=== PATIENT | female | born 1985 | race African-American/Black ===

== ENCOUNTER 2023-03-14 07:22 | Emergency (ER) | payer SELFPAY | END 2023-03-14 09:05 | disposition home or self-care (01) | LOC: NAV ERS 07:22 | DX: B34.9 Viral infection, unspecified (principal); Z20.822 Contact with and (suspected) exposure to COVID-19; F17.210 Nicotine dependence, cigarettes, uncomplicated | CPT/HCPCS: 87081; 87430; 87635; 87804; 99283 ==

== ENCOUNTER 2025-04-15 19:25 | Emergency (ER) | payer BC, SELFPAY ==
[2025-04-15 19:53] LABS: #Basophils 0.1 thou/uL (0.0-0.2); #Eosinophils 0.1 thou/uL (0.0-0.7); #Lymphocytes 3.1 thou/uL (1.20-3.40); #Monocytes 0.8 thou/uL (0.11-0.59); #Neutrophils 6.9 thou/uL (1.40-6.50); %Basophils 1.3 % (0.0-1.0); %Eosinophils 0.6 % (0.0-10.0); %Lymphocytes 28.0 % (21.0-51.0); %Monocytes 7.0 % (0.0-10.0); %Neutrophils 63.1 % (42.0-75.0); Hematocrit 40.4 % (36.0-47.0); Hemoglobin 13.4 g/dL (12.0-16.0); Mean Corpuscular Hemoglobin 28.0 pg (27.0-31.0); Mean Corpuscular Volume 84.5 fl (78.0-98.0); Platelet Count 359 10x3/uL (130-400); Red Blood Cell (RBC) Count 4.78 mill/uL (4.20-5.40); White Blood Cell (WBC) Count 10.9 10x3/uL (4.8-10.8)
[2025-04-15] MEDS ORDERED: Aspirin Chewable 81 MG TAB ONE (20:08)
[2025-04-15] MEDS ORDERED: Nitroglycerin 0.4 MG TAB 1 EACH ONE (20:09)
[2025-04-15 20:19] LABS: Troponin I Less than 0.010 ng/mL (< 0.028)
[2025-04-15 20:20] LABS: ALT (SGPT) 7 U/L (Less than 34); AST (SGOT) 20 U/L (11-34); Albumin 4.2 g/dL (3.1-4.5); Alkaline Phosphatase 72 U/L (40-110); Anion Gap 16 mmol/L (10-20); BUN (Urea Nitrogen) 8 mg/dL (7.0-18.7); Bilirubin, Total 0.3 mg/dL (0.3-1.2); Calc. Creatinine Clearance 0 mL/min (70-130); Calcium 8.8 mg/dL (7.8-10.44); Carbon Dioxide 20 mmol/L (22-29); Chloride 105 mmol/L (98-107); Globulin 3.7 g/dL (2.4-3.5); Glucose 94 mg/dL (70-105); Lipase 39 U/L (8-78); Potassium 4.0 mmol/L (3.5-5.1); Sodium 137 mmol/L (136-145)
[2025-04-15] MEDS ORDERED: Metoprolol Tartrate 5 MG (5 mL) VIAL ONE (20:28)
[2025-04-15 23:23] LABS: Troponin I Less than 0.010 ng/mL (< 0.028)
[2025-04-15] MEDS ORDERED: Pantoprazole 40 MG DR.TAB ONE (23:33)
== END 2025-04-15 23:40 | disposition home or self-care (01) ==
LOC: NAV ERS 19:25
DX: R07.2 Precordial pain (principal); I10 Essential (primary) hypertension; F17.210 Nicotine dependence, cigarettes, uncomplicated
CPT/HCPCS: 71045; 80053; 83690; 84484; 85025; 93005; 94760; 96374